=== PATIENT | male | born 2005 | race Two or more races ===

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

== ENCOUNTER 2024-08-09 02:32 | Emergency (ER) | payer OTHER ==
--- OUTSIDE RECORDS SUMMARY | 2024-08-09 02:34 | XMS REPORT | Continuity of Care Document ---
Author Name Unknown Address [address] [place] [address] [facility] [address] [place] [address] Care Team Providers Care Termite Control Representative Name Role Phone Unavailable Unavailable Unavailable Encounters Start Date/Time End Date/Time Encounter Type Admission Type Attending Clinicians [facility] Facility Care Department Encounter ID Source 2024-06-13 15:35:07 2024-06-13 15:35:07 Outpatient SFA SFA [id number] Ryland Pisano 2024-04-13 14:17:22 2024-04-13 14:17:22 Outpatient SFA SFA [id number] Ryland Pisano 2024-02-29 08:43:55 2024-02-29 08:43:55 Outpatient SFA SFA [id number] Ryland Pisano 2024-02-24 08:47:28 2024-02-24 08:47:28 Outpatient SFA SFA [id number] Ryland Pisano 2024-01-22 13:51:09 2024-01-22 13:51:09 Outpatient SFA SFA [id number] Ryland Pisano 2024-01-06 09:07:19 2024-01-06 09:07:19 Outpatient SFA SFA [id number] Ryland Pisano 2023-12-25 15:25:14 2023-12-25 15:25:14 Outpatient SFA SFA [id number] Ryland Pisano 2023-12-03 08:44:11 2023-12-03 08:44:11 Outpatient SFA SFA [id number] Ryland Pisano 2023-11-18 15:46:04 2023-11-18 15:46:04 Outpatient SFA SFA [id number] Ryland Pisano 2023-10-21 14:37:46 2023-10-21 14:37:46 Outpatient SFA SFA [id number] Ryland Pisano 2023-09-18 15:42:03 2023-09-18 15:42:03 Outpatient SFA SFA [id number] Ryland Pisano 2023-09-16 13:49:47 2023-09-16 13:49:47 Outpatient SFA SFA [id number] Ryland Pisano 2023-08-26 16:20:50 2023-08-26 16:20:50 Outpatient SFA SFA [id number] Ryland Pisano 2023-08-07 13:43:57 2023-08-07 13:43:57 Outpatient SFA SFA [id number] Ryland Pisano 2023-07-29 13:50:01 2023-07-29 13:50:01 Outpatient SFA SFA [id number] Ryland Pisano 2023-07-01 13:41:16 2023-07-01 13:41:16 Outpatient SFA SFA [id number] Ryland Elias Norris 2023-06-26 13:10:33 2023-06-26 13:10:33 Outpatient SFA SFA [id number] Ryland Pisano 2023-05-29 13:35:07 2023-05-29 13:35:07 Outpatient SFA SFA [id number] Ryland Pisano 2023-05-27 14:05:51 2023-05-27 14:05:51 Outpatient SFA SFA [id number] Ryland Pisano 2023-05-15 13:41:26 2023-05-15 13:41:26 Outpatient SFA SFA [id number] Ryland Pisano 2023-05-04 13:21:42 2023-05-04 13:21:42 Outpatient SFA SFA [id number] Ryland Pisano 2023-05-01 14:09:26 2023-05-01 14:09:26 Outpatient SFA SFA [id number] Ryland Pisano 2023-04-23 13:58:20 2023-04-23 13:58:20 Outpatient SFA SFA [id number] Ryland Pisano 2023-04-15 13:08:52 2023-04-15 13:08:52 Outpatient SFA SFA [id number] Ryland Curt Norris 2023-04-02 10:23:21 2023-04-02 10:23:21 Outpatient SFA SFA [id number] Ryland Pisano 2023-03-06 13:50:38 2023-03-06 13:50:38 Outpatient SFA SFA [id number] Ryland Pisano
[2024-08-09] MEDS ORDERED: NA CHLORIDE 0.9% 1,000 ML ONE (03:54)
[2024-08-09 04:12] LABS: Absolute Basophils 0.1 K/uL (0-0.5); Absolute Eosinophils 0.1 K/uL (0-0.5); Absolute Lymphocytes (CBC) 2.3 K/uL (0.7-4.9); Absolute Monocytes 0.9 K/uL (0.1-1.3); Absolute Neutrophil 4.2 K/uL (1.8-8.0); Basophils % 0.8 % (0-1.3); Eosinophils % 1.4 % (0-4.4); Hematocrit 45.3 % (39.6-49.0); Hemoglobin 15.9 g/dL (13.6-17.9); Lymphocytes % 30.2 % (15.3-44.8); MCHC 35.2 g/dL (32.0-36.0); MCV 85.2 fL (80-100); MPV 8.6 fL (7.6-11.3); Monocytes % 12.3 % (3.3-12.3); Neutrophils % 55.3 % (41.7-73.7); Nucleated Red Blood Cells % 0.1 % (0-0); Platelets 218 thou/uL (152-406); RBC Red Blood Cell Count 5.32 M/uL (4.33-5.43); Red Cell Distribution Width 13.3 % (12.1-15.2)
[2024-08-09 04:13] LABS: PT Prothrombin Time 11.8 SECONDS (10-13.0); PTT, Activated Partial Thromb 33.3 SECONDS (27.2-37.4); Protime INR 1.04
[2024-08-09 04:37] LABS: ALT/SGPT 21 U/L (16-61); AST/SGOT 16 U/L (15-37); Albumin 3.7 g/dL (3.4-5.0); Alkaline Phosphatase 68 U/L (45-117); BUN Blood Urea Nitrogen 10 mg/dL (7-18); Bicarbonate 29 mEq/L (21-32); Bilirubin Total 0.3 mg/dL (0.2-1.0); Globulin 3.8 g/dL (2.3-3.5); Glomerular Filtration Rate 128 ml/min (=/>90); Glucose Level 78 mg/dL (74-106); Protein, Total 7.5 g/dL (6.4-8.2); Sodium Level 139 mEq/L (136-145)
[2024-08-09 04:40] LABS: Bilirubin Direct < 0.2 mg/dL (0-0.2); Bilirubin Indirect, Calculated 0.1 mg/dL (0.2-0.8)
[2024-08-09 05:40] LABS: Barbiturates NEGATIVE (NEGATIVE); Benzodiazepines NEGATIVE (NEGATIVE); Cocaine NEGATIVE (NEGATIVE); METHAMPHETAM NEGATIVE (NEGATIVE); Methadone NEGATIVE (NEGATIVE); Opiates NEGATIVE (NEGATIVE); Phencyclidine NEGATIVE (NEGATIVE); THC Cannibis NEGATIVE (NEGATIVE)
[2024-08-09 05:41] LABS: Specific Gravity > 1.030 (1.005-1.030); Sqamous Epithelial <5 /HPF (None Seen); Urine Bacteria None Seen /HPF (<20); Urine Bilirubin NEGATIVE (Negative); Urine Blood Negative (Negative); Urine Clarity Clear (Clear); Urine Color Yellow (Yellow); Urine Culture Reflex Order NOT NEEDED; Urine Glucose NEGATIVE (Negative); Urine Ketones NEGATIVE (Negative); Urine Microscopic Reflex YN ORDER UMIC; Urine Mucus 4+ /HPF (None Seen); Urine Nitrite NEGATIVE (Negative); Urine Protein 1+ (Negative); Urine RBC <5 /HPF (None Seen); Urine Urobilinogen 1+ (Normal); Urine WBC <5 /HPF (<5); Urine pH 6.5 (5.0-7.0)
--- NOTE | 2024-08-09 06:03 | ER ---
Nurse's Notes [facility] Name: Cody Rodríguez Age: 19 yrs Sex: Male : 2005 Arrival Date: 08/09/2024 Time: 02:32 Bed 18 Private MD: Diagnosis: Suicidal ideations;Acute exacerbation of chronic depression Presentation: 08/09 02:45 Chief complaint: EMS states: TONED OUT FOR SI BY PD. PER EMS, PT DENIES ATTEMPT AND bm8 DENIES PLAN. PT STATES HE IS "OVER IT, OVER EVERYTHING". PT HERE ON DEBORAH. Coronavirus screen: At this time, the client does not indicate any symptoms associated with coronavirus-19. Ebola Screen: No symptoms or risks identified at this time. Initial Sepsis Screen: Does the patient meet any 2 criteria?. Risk Assessment: Do you want to hurt yourself or someone else? Patient reports no desire to harm self or others. Onset of symptoms is unknown. 02:45 Method Of Arrival: EMS: [facility] bm8 02:45 Acuity: MACK 2 bm8 02:45 Initial Sepsis Screen: Does the patient have a suspected source of infection? No. bm8 Patient's initial sepsis screen is negative. Triage Assessment: 02:49 General: Appears in no apparent distress. Behavior is calm, cooperative, appropriate bm8 for age. Pain: Denies pain. EENT: No deficits noted. No signs and/or symptoms were reported regarding the EENT system. Neuro: Mccullough Agitation-Sedation Scale (RASS): 0 - Alert and Calm Level of Consciousness is awake, alert, obeys commands, Oriented to person, place, time, situation, Appropriate for age. Cardiovascular: No deficits noted. Patient's skin is warm and dry. Respiratory: No deficits noted. Airway is patent Respiratory effort is even, unlabored, Respiratory pattern is regular, symmetrical. GI: No deficits noted. No signs and/or symptoms were reported involving the gastrointestinal system. Abdomen is obese. : No deficits noted. No signs and/or symptoms were reported regarding the genitourinary system. Derm: No deficits noted. No signs and/or symptoms reported regarding the dermatologic system. Skin is healthy with good turgor, Skin is dry, Skin is normal, Skin temperature is warm. Musculoskeletal: No deficits noted. No signs and/or symptoms reported regarding the musculoskeletal system. Circulation, motion, and sensation intact. Range of motion: intact in all extremities. Historical: - Allergies: 02:49 Ibuprofen; bm8 02:49 Ofloxacin; bm8 02:49 Tylenol; bm8 - PMHx: 02:49 ADD; Autism (depressive disorder); depressive disorder; mood disregulation disorder bm8 (depressive disorder); Seizure; ticks; - PSHx: 02:49 None; bm8 - Immunization history:: Adult Immunizations unknown. - Infectious Disease History:: Denies. - Social history:: Smoking status: Patient denies any tobacco usage or history of. - Family history:: not pertinent. Screenin:45 [facility] ED Fall Risk Assessment (Adult) History of falling in the last 3 months, bm8 including since admission No falls in past 3 months (0 pts) Confusion or Disorientation No (0 pts) Intoxicated or Sedated No (0 pts) Impaired Gait No (0 pts) Mobility Assist Device Used No (0 pt) Altered Elimination No (0 pt) Score/Fall Risk Level 0 - 2 = Low Risk Oriented to surroundings, Maintained a safe environment, Educated pt \\T\\ family on fall prevention, incl call for assistance when getting out of bed, Assessed \\T\\ reinforced patient's understanding of fall precautions, Hourly rounding (assess needs \\T\\ fall precautionary measures) done, Used ambulatory aids as needed (educated on \\T\\ assisted with), Used gait belt as appropriate. Abuse screen: Denies threats or abuse. Nutritional screening: No deficits noted. 04:00 Tuberculosis screening: No symptoms or risk factors identified. bm8 Assessment: 02:59 Reassessment:. General: RORD- FRIEND [phone], MOM- [phone]. bm8 03:38 General: pt belongings have inventoried and sheet signed by this nurse and PT. Security bm8 picked up items and they were taken to vault at this. . 04:00 Reassessment: Patient appears in no apparent distress at this time. Patient and/or bm8 family updated on plan of care and expected duration. Pain level reassessed. Patient is alert, oriented x 3, equal unlabored respirations, skin warm/dry/pink. pt provided blanket and is currently resting in bed with eyes closed breathing is even and unlabored at this time with symmmetrical rise and fall of chest Patient denies pain at this time. 06:05 Reassessment: report to [facility] at [facility]. bm8 06:44 Reassessment: Patient appears in no apparent distress at this time. No changes from bm8 previously documented assessment. Patient and/or family updated on plan of care and expected duration. Pain level reassessed. Patient is alert, oriented x 3, equal unlabored respirations, skin warm/dry/pink. pt provided with personal belongings from [facility]. Pt to be transferred to [facility] via [facility] Patient denies pain at this time. Psych: 03:00 Pandora Suicide Severity Screening: In the past month, have you wished you were bm8 or wished you could go to sleep and not wake up? Patient responds "yes." Based off the client's responses additional C-SSRS screening is required. "In the past month, have you actually had any thoughts of killing yourself?" Patient responds "yes." Based off the client's response additional Pandora suicide severity screening questions to be further documented on paper forms. "In your lifetime, have you ever done anything, started to do anything, or prepared to do anything to end your life?" Patient responds "yes." Patient reports suicidal intent within 3 past months. Subjective: Patient's mood is hopeless, Delusions are denied, Hallucinations are denied Having thoughts of suicide. Plan for suicide is is to get a rope and hang self. Objective: Patient is cooperative, Speech is normal, soft, Affect is appropriate, Patient has mutilated themselves by cutting on right left forearm, very superficial and not fresh wounds. Interventions: Removed personal items and placed in bag. Patient placed in hospital gown. Searched person for dangerous items. Urine collected and sent for urine drug test. Belonging list filled out. Safety Checks: Personal items have been removed. Door is open. No visitors are present at this time. Pt denies substance abuse. Commitment: Patient will be a voluntary commitment. Vital Signs: 02:45 BP 147 / 90; Pulse 102; Resp 20; Temp 98.5; Pulse Ox 96% ; Weight 163.29 kg; Height 5 bm8 ft. 9 in. ; Pain 0/10; 04:00 BP 138 / 88; Pulse 92; Resp 18; Temp 98.5; Pulse Ox 96% ; Pain 0/10; bm8 06:44 BP 136 / 89; Pulse 78; Resp 18; Temp 98.5; Pulse Ox 100% on R/A; Pain 0/10; bm8 02:45 Body Mass Index 53.16 (163.29 kg, 175.26 cm) bm8 02:45 Pain Scale: Adult bm8 04:00 Pain Scale: Adult bm8 06:44 Pain Scale: Adult bm8 Jossue Coma Score: 03:02 Eye Response: spontaneous(4). Motor Response: obeys commands(6). Verbal Response: bm8 oriented(5). Total: 15. 04:00 Eye Response: spontaneous(4). Motor Response: obeys commands(6). Verbal Response: bm8 oriented(5). Total: 15. 05:57 Eye Response: spontaneous(4). Motor Response: obeys commands(6). Verbal Response: sp4 oriented(5). Total: 15. 06:05 Eye Response: spontaneous(4). Motor Response: obeys commands(6). Verbal Response: bm8 oriented(5). Total: 15. 06:44 Eye Response: spontaneous(4). Motor Response: obeys commands(6). Verbal Response: bm8 oriented(5). Total: 15. ED Course: 02:33 Patient arrived in ED. [email or web address] 02:45 Safety Checks: Personal items have been removed. The door is open or patient has been bm8 placed in a hallway bed/chair. There are no family/friend visitors at this time. 02:45 Patient has correct armband on for positive identification. Placed in gown. Bed in low bm8 position. Call light in reach. Side rails up X 1. Client placed on continuous cardiac and pulse oximetry monitoring. NIBP monitoring applied. electronic device monitor on. Pulse ox on. NIBP on. Door closed. Noise minimized. Warm blanket given. Pillow given. Verbal reassurance given. Head of bed elevated. Patient is placed in psych hold. 02:45 Provided Education on: PYSCH PROTOCOL. bm8 02:45 No provider procedures requiring assistance completed. Patient maintains SpO2 bm8 saturation greater than 95% on room air. 02:48 Rogelio Dumas MD is Attending Physician. sp4 02:49 Triage completed. bm8 02:49 Arm band placed on right wrist. bm8 02:59 Joshua Whittington, RN is Primary Nurse. bm8 03:00 Safety Checks: Personal items have been removed. The door is open or patient has been bm8 placed in a hallway bed/chair. There are no family/friend visitors at this time. 04:00 Safety Checks: Personal items have been removed. The door is open or patient has been bm8 placed in a hallway bed/chair. There are no family/friend visitors at this time. 04:00 Initial lab(s) drawn, by me, sent to lab. EKG done, by ED staff, reviewed by Rogelio Dumas MD. Inserted saline lock: 18 gauge in right antecubital area, using aseptic technique. Blood collected. Flushed with 10 mL NS 05:00 Safety Checks: Personal items have been removed. The door is open or patient has been bm8 placed in a hallway bed/chair. There are no family/friend visitors at this time. 06:00 Safety Checks: Personal items have been removed. The door is open or patient has been bm8 placed in a hallway bed/chair. There are no family/friend visitors at this time. 06:24 Diet: Patient given snack. Patient given juice. Tolerated well. [email or web address] 06:27 pt was accepted to [facility] admin Rubens Ramirez \\T\\[id number]. Dr. Oswald \\T\\ [id number]. [facility] ems to transfer pt. 06:44 IV discontinued, intact, bleeding controlled, No redness/swelling at site. Pressure bm8 dressing applied. 06:47 PT WAS ACCEPTED TO [address]--1052. NUMBER FOR NURSE TO NURSE REPORT [facility] [phone]. ACCEPTING Cristiana MAZARIEGOS \\T\\[id number]. ADMIN APPROVAL NATASHA BOONE. [facility] TO TRANSFER PT. Administered Medications: 04:06 Drug: ns 0.9% 1000 ml IV at 1000 ml once; to be given as a bolus over 60 minutes Route: bm8 IV; Rate: 1000 ml; Site: right antecubital; 06:27 Follow up: Response: No adverse reaction; IV Status: Completed infusion bm8 Medication: 03:02 VIS not applicable for this client. bm8 Outcome: 06:03 ER care complete, transfer ordered by MD. sp4 06:44 Transferred by ground EMS Transfer form completed. bm8 06:44 Condition: stable 06:44 Instructed on the need for transfer, Demonstrated understanding of instructions, follow-up care, medications, 06:51 Patient left the ED. bm8 Signatures: Suzy Armendariz [email or web address] Rogelio Dumas MD MD sp4 Jocelyn Oliveros [facility] Joshua Whittington RN RN bm8 Janes Lindsey rk3 Corrections: (The following items were deleted from the chart) 04:05 04:04 Reassessment: Patient appears in no apparent distress at this time. Patient bm8 and/or family updated on plan of care and expected duration. Pain level reassessed. Patient is alert, oriented x 3, equal unlabored respirations, skin warm/dry/pink. pt provided blanket and is currently resting in bed with eyes closed breathing is even and unlabored at this time with symmmetrical rise and fall of chest Patient denies pain at this time. bm8
--- NOTE | 2024-08-09 06:03 | EDPHYS ---
Physician Documentation [facility] Name: Cody Rodríguez Age: 19 yrs Sex: Male : 2005 Arrival Date: 08/09/2024 Time: 02:32 Bed 18 Private MD: ED Physician Rogelio Dumas HPI: 08/09 02:48 This 19 yrs old Male presents to ER via Unassigned with complaints of sp4 Suicidal Ideation. 05:57 Patient presents with worsening depression and suicidal ideation. History of ADD, sp4 autism, depressive disorder, mood dysregulation disorder. Historical: - Allergies: 02:49 Ibuprofen; bm8 02:49 Ofloxacin; bm8 02:49 Tylenol; bm8 - PMHx: 02:49 ADD; Autism (depressive disorder); depressive disorder; mood disregulation disorder bm8 (depressive disorder); Seizure; ticks; - PSHx: 02:49 None; bm8 - Immunization history:: Adult Immunizations unknown. - Infectious Disease History:: Denies. - Social history:: Smoking status: Patient denies any tobacco usage or history of. - Family history:: not pertinent. ROS: 05:57 Constitutional: Negative for fever, chills, and weight loss, positive for suicidal sp4 ideation and worsening depression Eyes: Negative for injury, pain, redness, and discharge, 05:57 All other systems are negative, Exam: 05:57 Constitutional: This is a well developed, well nourished patient who is awake, alert, sp4 and in no acute distress. Head/Face: Normocephalic, atraumatic. Eyes: Pupils equal round and reactive to light, extra-ocular motions intact. Lids and lashes normal. Conjunctiva and sclera are not injected. Cornea within normal limits. Periorbital areas with no swelling, redness, or edema. ENT: Nares patent. No nasal discharge, no septal abnormalities noted. Tympanic membranes are normal and external auditory canals are clear. Oropharynx with no redness, swelling, or masses, exudates, or evidence of obstruction, uvula midline. Mucous membranes moist. Neck: Trachea midline, no thyromegaly or masses palpated, and no cervical lymphadenopathy. Supple, full range of motion without nuchal rigidity, or vertebral point tenderness. Chest/axilla: Normal chest wall appearance and motion. Nontender with no deformity. No lesions are appreciated. Cardiovascular: Regular rate and rhythm with a normal S1 and S2. No gallops, murmurs, or rubs. Normal PMI, no JVD. No pulse deficits. Respiratory: Lungs have equal breath sounds bilaterally, clear to auscultation and percussion. No rales, rhonchi or wheezes noted. No increased work of breathing, no retractions or nasal flaring. Abdomen/GI: Soft, with normal bowel sounds. No distension or tympany. No guarding or rebound. No evidence of tenderness throughout. Back: No spinal tenderness. No costovertebral tenderness. Skin: Warm, dry with normal turgor. Normal color with no rashes, no lesions, and no evidence of cellulitis. MS/ Extremity: Pulses equal, no cyanosis. Neurovascular intact. Full, normal range of motion. Neuro: Awake and alert, GCS 15, oriented to person, place, time, and situation. Cranial nerves II-XII grossly intact. Motor strength 5/5 in all extremities. Sensory grossly intact. Psych: Awake, alert, with orientation to person, place and time. Behavior, mood, and affect are within normal limits 19:59 ECG was reviewed by the Attending Physician. EKG 0 256 sp4 Vital Signs: 02:45 BP 147 / 90; Pulse 102; Resp 20; Temp 98.5; Pulse Ox 96% ; Weight 163.29 kg; Height 5 bm8 ft. 9 in. ; Pain 0/10; 04:00 BP 138 / 88; Pulse 92; Resp 18; Temp 98.5; Pulse Ox 96% ; Pain 0/10; bm8 06:44 BP 136 / 89; Pulse 78; Resp 18; Temp 98.5; Pulse Ox 100% on R/A; Pain 0/10; bm8 02:45 Body Mass Index 53.16 (163.29 kg, 175.26 cm) bm8 02:45 Pain Scale: Adult bm8 04:00 Pain Scale: Adult bm8 06:44 Pain Scale: Adult bm8 Jackson Coma Score: 03:02 Eye Response: spontaneous(4). Motor Response: obeys commands(6). Verbal Response: bm8 oriented(5). Total: 15. 04:00 Eye Response: spontaneous(4). Motor Response: obeys commands(6). Verbal Response: bm8 oriented(5). Total: 15. 05:57 Eye Response: spontaneous(4). Motor Response: obeys commands(6). Verbal Response: sp4 oriented(5). Total: 15. 06:05 Eye Response: spontaneous(4). Motor Response: obeys commands(6). Verbal Response: bm8 oriented(5). Total: 15. 06:44 Eye Response: spontaneous(4). Motor Response: obeys commands(6). Verbal Response: bm8 oriented(5). Total: 15. MDM: 05:58 Differential diagnosis: drug withdrawal. acute psychotic break, depression, psychosis sp4 secondary to non-compliance. Data reviewed: vital signs, nurses notes, lab test result(s). 05:59 Consideration of Admission/Observation Escalation of care including sp4 admission/observation considered. Management of patient was discussed with the following: Executive Services Administrator: Accepting psychiatrist. ED course: Positive for suicidal ideation and worsening depression. Patient warrants transfer to psychiatric hospital.. 06:03 Medical Screening Exam initiated 08/09 02:49 Order name: Acetaminophen; Complete Time: 05:59 08/09 02:49 Order name: Basic Metabolic Panel; Complete Time: 05:59 08/09 02:49 Order name: CBC with Diff; Complete Time: 05:59 08/09 02:49 Order name: ETOH Level; Complete Time: 05:59 08/09 02:49 Order name: Hepatic Function; Complete Time: 05:59 08/09 02:49 Order name: PT-INR; Complete Time: 05:59 08/09 02:49 Order name: Ptt, Activated; Complete Time: 05:59 08/09 02:49 Order name: Salicylate; Complete Time: 05:59 08/09 02:49 Order name: Urinalysis w/ reflexes; Complete Time: 05:59 08/09 02:49 Order name: Urine Drug Screen; Complete Time: 05:59 08/09 02:49 Order name: EKG - Nurse/Tech; Complete Time: 03:12 08/09 02:49 Order name: IV Saline Lock; Complete Time: 04:10 08/09 02:49 Order name: Labs collected and sent; Complete Time: 04:10 15 02:49 Order name: Suicide Precautions; Complete Time: 04:10 sp4 08/09 02:49 Order name: Suicide Screening ([place]); Complete Time: : sp4 EC:56 Rate is 105 beats/min. Rhythm is regular, Sinus tachycardia. QRS [place] is Normal. TN sp4 interval is normal. QRS interval is normal. QT interval is normal. No Q waves. T waves are Normal. No ST changes noted. Clinical impression: No evidence of ischemia. Interpreted by me. Reviewed by me. Administered Medications: 04:06 Drug: ns 0.9% 1000 ml IV at 1000 ml once; to be given as a bolus over 60 minutes Route: bm8 IV; Rate: 1000 ml; Site: right antecubital; 06:27 Follow up: Response: No adverse reaction; IV Status: Completed infusion bm8 Disposition Summary: 08/09/24 06:03 Transfer Ordered Notes: Transfer Location: [facility] sp4 Reason: Higher level of care sp4 Condition: Stable sp4 Problem: new sp4 Symptoms: have improved sp4 Accepting Physician: Attending psychiatrist(08/09/24 06:51) bm8 Diagnosis - Suicidal ideations sp4 - Acute exacerbation of chronic depression sp4 Discharge Instructions: - Discharge Summary Sheet kmf Forms: - Medication Reconciliation Form sp4 - SBAR form kmf Signatures: Dispatcher [employer] Rogelio Smith MD MD sp4 Joshua Whittington RN RN bm8 Corrections: (The following items were deleted from the chart) 02:49 02:49 ACETAMINOPHEN+C.LAB.BRZ ordered. EDMS EDMS 02:49 02:49 BASIC METABOLIC PANEL+C.LAB.BRZ ordered. EDMS EDMS 02:49 02:49 CBC+H.LAB.BRZ ordered. EDMS EDMS 02:49 02:49 ETHANOL+C.LAB.BRZ ordered. EDMS EDMS 02:49 02:49 HEPATIC FUNCTION+C.LAB.BRZ ordered. EDMS EDMS 02:49 02:49 PROTIME (+INR)+COAG.LAB.BRZ ordered. EDMS EDMS 02:49 02:49 PTT, ACTIVATED+COAG.LAB.BRZ ordered. EDMS EDMS 02:49 02:49 SALICYLATE+C.LAB.BRZ ordered. EDMS EDMS 02:49 02:49 Urinalysis+U.LAB.BRZ ordered. EDMS EDMS 02:49 02:49 URINE DRUG SCREEN+UC.LAB.BRZ ordered. EDMS EDMS 06:51 06:03 Attending psychiatrist sp4 bm8
[2024-08-09 06:55] VITALS: TEMP 98.5
[2024-08-09 06:59] VITALS: BP 136/89; O2SAT 100
== END 2024-08-09 06:51 ==
LOC: ER 02:32
DX: R45.851 Suicidal ideations (principal); F32.A Depression, unspecified; F84.0 Autistic disorder
CPT/HCPCS: 93005; 85025; 81001; 80048; 36415; 85610; 80076; 85730; 80307; 80143; 80179; 82077; J7030